=== PATIENT | female | born 1975 | race Caucasian/White ===

== ENCOUNTER → 2018-07-09 | Outpatient (CLI) | payer OTHER ==
--- NOTE | 2018-07-09 12:43 | KCIC ---
EXAM: Abdomen sonogram. HISTORY: Pain. TECHNIQUE: Sonographic imaging of the abdomen was performed. COMPARISON: None. FINDINGS: The liver is enlarged. There is hepatic steatosis. No focal hepatic lesion is seen. There is cholelithiasis. This includes nonmobile stones within the gallbladder neck. There is no gallbladder wall thickening. The common bile duct is normal in caliber. The right kidney, inferior vena cava and aorta are unremarkable. The pancreas is partially obscured due to bowel gas. IMPRESSION: 1. Hepatomegaly and hepatic steatosis. 2. Cholelithiasis. There are nonmobile gallstones within the common. There is no sonographic evidence of superimposed cholecystitis. Electronically signed by: Merna Fuentes MD (07/09/2018 12:39 PM) [place] [id number]
--- NOTE | 2018-07-11 12:48 | RAD ---
EXAM: Abdomen sonogram. HISTORY: Pain. TECHNIQUE: Sonographic imaging of the abdomen was performed. COMPARISON: None. FINDINGS: The liver is enlarged. There is hepatic steatosis. No focal hepatic lesion is seen. There is cholelithiasis. This includes nonmobile stones within the gallbladder neck. There is no gallbladder wall thickening. The common bile duct is normal in caliber. The right kidney, inferior vena cava and aorta are unremarkable. The pancreas is partially obscured due to bowel gas. IMPRESSION: 1. Hepatomegaly and hepatic steatosis. 2. Cholelithiasis. There are nonmobile gallstones within the common. There is no sonographic evidence of superimposed cholecystitis. Electronically signed by: Merna Fuentes MD (07/09/2018 12:39 PM) [facility] DICTATED and SIGNED BY: MERNA FUENTES MD DATE: 07/09/18 1239 MTDD
== END | disposition home or self-care (01) ==
LOC: KCIC US 11:03
PROVIDERS: ATTEND Family Medicine
DX: K80.20 Calculus of gallbladder without cholecystitis without obstruction (principal); K76.0 Fatty (change of) liver, not elsewhere classified
CPT/HCPCS: 76705